=== PATIENT | male | born 1955 | race Two or more races ===

== ENCOUNTER 2017-09-12 13:09 | Inpatient (IN) | payer OTHER ==
[~2017-09-12] VITALS: Ht 170.2 cm; Wt 90.3 kg
[~2017-09-12 13:09] MED LIST: AMITRIPTYLINE H10 M3 PO; CARVEDILOL6.25 M1 PO; COU7.5 PO; DICLOFENAC SODI75 MG PO; METFORMIN HCL1000 MG PO; NEU300 PO; NITROFURANTOIN100 MG PO; NOR10T PO; ROBAXIN-750750 MG PO; ZESTRIL40 MG PO
[2017-09-12 13:20] VITALS: Ht 170.2 cm; Wt 90.3 kg
[2017-09-12 14:02] LABS: BASOPHIL % 0.5 % (0-2); RED CELL DISTRIBUTION WIDTH 13.8 % (11.5-14.5)
[2017-09-12 14:08] LABS: CALCIUM 9.6 mg/dL (8.5-10.1); CARBON DIOXIDE 25.7 mmol/L (21-32); CREATININE SERUM 1.7 mg/dL (0.7-1.3); POTASSIUM SERUM 3.9 mmol/L (3.5-5.1)
[2017-09-12 14:12] LABS: ALBUMIN 3.4 g/dL (3.4-5.0); BILIRUBIN TOTAL 0.65 mg/dL (0.20-1.00)
[2017-09-12 14:13] LABS: TOTAL PROTEIN, SERUM 8.3 g/dL (6.4-8.2)
[2017-09-12 14:17] LABS: PLATELET COUNT 436 x10^3mcL (130-400)
[2017-09-12] MEDS ORDERED: FLOMAX0.4 MG PO (15:40)
[2017-09-12] MEDS ORDERED: CARVEDILOL25 M1 PO (15:40)
[2017-09-12] MEDS ORDERED: HYDROCHLOROTHIA25 MG PO (15:41)
[2017-09-12] MEDS ORDERED: DICLOFENAC SODI75 M1 PO (15:41)
[2017-09-12] MEDS ORDERED: LIPITOR40 MG PO (15:41)
[2017-09-12] MEDS ORDERED: VIBERZI100 MG PO (15:41)
[2017-09-12] MEDS ORDERED: ULTRAM50 MG PO (15:41)
[2017-09-12] MEDS ORDERED: ACT30 PO (15:41)
[2017-09-12 17:23] LABS: MAGNESIUM 1.8 mg/dL (1.8-2.4); PHOSPHOROUS 5.3 mg/dL (2.5-4.9)
[2017-09-12 17:28] LABS: T3 TOTAL 0.76 ng/mL
[2017-09-12 17:36] LABS: FREE T4 1.24 ng/dL (0.76-1.46); FREE THYROXINE INDEX 3.1 ug/dL (1.4-4.5); T4(THYROXINE) 8.8 ug/dL (4.7-13.3)
[2017-09-12 17:44] VITALS: BP 100/64
[2017-09-13 01:03] LABS: microscopic required? NO
[2017-09-13 01:20] LABS: urine erythrocyte NEGATIVE (NEGATIVE)
[2017-09-13 01:45] LABS: AMPHETAMINE QUAL UR NONE DETECTED (NEG <=1000)
[2017-09-13 06:00] VITALS: BP 99/66
[2017-09-13 06:29] LABS: BASOPHIL % 0.7 % (0-2); PLATELET COUNT 389 x10^3mcL (130-400); RED CELL DISTRIBUTION WIDTH 13.8 % (11.5-14.5)
[2017-09-13 06:49] LABS: CALCIUM 9.2 mg/dL (8.5-10.1); CARBON DIOXIDE 26.1 mmol/L (21-32); CREATININE SERUM 1.3 mg/dL (0.7-1.3); MAGNESIUM 1.9 mg/dL (1.8-2.4); PHOSPHOROUS 4.9 mg/dL (2.5-4.9); POTASSIUM SERUM 3.9 mmol/L (3.5-5.1)
[2017-09-13 09:56] VITALS: BP 105/78
[2017-09-13 12:39] VITALS: BP 106/75
[2017-09-13 17:46] VITALS: BP 111/62
[2017-09-13 19:20] VITALS: BP 96/70
[2017-09-14 05:31] VITALS: BP 114/74
[2017-09-14 06:36] LABS: PLATELET COUNT 373 x10^3mcL (130-400); RED CELL DISTRIBUTION WIDTH 13.9 % (11.5-14.5)
[2017-09-14 07:01] LABS: CALCIUM 9.3 mg/dL (8.5-10.1); CARBON DIOXIDE 27.8 mmol/L (21-32); CHLORIDE SERUM 99 mmol/L (98-107); CREATININE SERUM 0.9 mg/dL (0.7-1.3); GFR1 > 60 mL/min; GLUCOSE SERUM 92 mg/dL (74-106); MAGNESIUM 1.5 mg/dL (1.8-2.4); PHOSPHOROUS 4.1 mg/dL (2.5-4.9); POTASSIUM SERUM 3.9 mmol/L (3.5-5.1); SODIUM SERUM 134 mmol/L (136-145)
[2017-09-14 09:47] VITALS: BP 119/80
[2017-09-14 11:48] VITALS: BP 119/80
[2017-09-14 13:03] VITALS: BP 105/69
== END 2017-09-14 13:31 | disposition home or self-care (01) | DRG 48 ==
LOC: ED 13:09 → DU 15:48
PROVIDERS: Emergency Medicine; Family Medicine
DX: G90.8 Other disorders of autonomic nervous system (principal); E11.22 Type 2 diabetes mellitus with diabetic chronic kidney disease; E87.8 Other disorders of electrolyte and fluid balance, not elsewhere classified; E87.1 Hypo-osmolality and hyponatremia; D64.9 Anemia, unspecified; I12.9 Hypertensive chronic kidney disease with stage 1 through stage 4 chronic kidney disease, or unspecified chronic kidney disease; S13.4XXA Sprain of ligaments of cervical spine, initial encounter; F41.9 Anxiety disorder, unspecified; N18.3 Chronic kidney disease, stage 3 (moderate); E83.39 Other disorders of phosphorus metabolism; F17.210 Nicotine dependence, cigarettes, uncomplicated; F12.90 Cannabis use, unspecified, uncomplicated; J44.9 Chronic obstructive pulmonary disease, unspecified; E02 Subclinical iodine-deficiency hypothyroidism; E66.3 Overweight; M19.90 Unspecified osteoarthritis, unspecified site; E78.00 Pure hypercholesterolemia, unspecified; X58.XXXA Exposure to other specified factors, initial encounter; Y93.89 Activity, other specified; Z86.73 Personal history of transient ischemic attack (TIA), and cerebral infarction without residual deficits; Y92.89 Other specified places as the place of occurrence of the external cause; Y99.8 Other external cause status; Z82.49 Family history of ischemic heart disease and other diseases of the circulatory system; Z68.31 Body mass index [BMI] 31.0-31.9, adult
CPT/HCPCS: 82962; 83880; 84439; G0480; J2800; J7030; J7040; Q0092

== ENCOUNTER 2017-11-19 12:41 | Emergency (ER) | payer OTHER ==
[~2017-11-19] VITALS: Ht 170.2 cm; Wt 99.3 kg
[~2017-11-19 12:41] MED LIST changes: +ACT30 PO; +CARVEDILOL25 M1 PO; +DICLOFENAC SODI75 M1 PO; +FLOMAX0.4 MG PO; +HYDROCHLOROTHIA25 MG PO; +LIPITOR40 MG PO; +ULTRAM50 MG PO; +VIBERZI100 MG PO
[2017-11-19 12:49] VITALS: Ht 170.2 cm; Wt 99.3 kg
[2017-11-19 14:47] VITALS: BP 125/74
== END 2017-11-19 14:47 | disposition home or self-care (01) ==
LOC: ED 12:41
PROC: 3E023NZ Introduction of Analgesics, Hypnotics, Sedatives into Muscle, Percutaneous Approach (ICD-10-PCS; principal; 2017-11-19)
DX: M54.5 Low back pain (principal); G89.29 Other chronic pain
CPT/HCPCS: J1885

== ENCOUNTER 2020-05-10 14:25 | Inpatient (IN) | payer OTHER ==
[~2020-05-10] VITALS: Ht 170.2 cm; Wt 101.6 kg
[2020-05-10 14:42] VITALS: Ht 170.2 cm; Wt 101.6 kg
[2020-05-10 17:09] LABS: BASOPHIL % 0.4 % (0.2-1.5); PLATELET COUNT 289 x10^3mcL (152-348)
[2020-05-10 17:13] LABS: CALCIUM 9.3 mg/dL (8.5-10.1); CARBON DIOXIDE 24.9 mmol/L (21-32); CHLORIDE SERUM 96 mmol/L (98-107); GFR1 > 60 mL/min; GLUCOSE SERUM 124 mg/dL (74-106); POTASSIUM SERUM 3.6 mmol/L (3.5-5.1); RED CELL DISTRIBUTION WIDTH 15.1 % (12.1-16.2); SODIUM SERUM 133 mmol/L (136-145)
[2020-05-10 17:14] LABS: rbc morphology (normal/abnorm) NORMAL (NORMAL)
[2020-05-10 17:18] LABS: ALBUMIN 3.9 g/dL (3.4-5.0); ALKALINE PHOSPHATASE 107 U/L (46-116); ALT/SGPT 41 U/L (16-63); AST/SGOT 31 U/L (15-37); BILIRUBIN TOTAL 0.8 mg/dL (0.20-1.00); MAGNESIUM 2.1 mg/dL (1.8-2.4); PHOSPHOROUS 1.9 mg/dL (2.5-4.9); TOTAL PROTEIN, SERUM 8.2 g/dL (6.4-8.2)
[2020-05-10] MEDS ORDERED: ASPIRIN CHILDRE81 MG PO (18:17)
[2020-05-11 00:33] VITALS: BP 130/96
[2020-05-11 06:15] VITALS: BP 121/92
[2020-05-11 06:32] LABS: BASOPHIL % 0.6 % (0.2-1.5); PLATELET COUNT 246 x10^3mcL (152-348)
[2020-05-11 07:17] LABS: RED CELL DISTRIBUTION WIDTH 14.9 % (12.1-16.2)
[2020-05-11 08:22] LABS: rbc morphology (normal/abnorm) NORMAL (NORMAL)
[2020-05-11 08:49] VITALS: BP 132/96
[2020-05-11 10:47] LABS: CALCIUM 9.2 mg/dL (8.5-10.1); CHLORIDE SERUM 98 mmol/L (98-107); CHOLESTEROL 137 mg/dL (<200); CHOLESTEROL/HDL RATIO 2.9; CREATININE SERUM 1.1 mg/dL (0.7-1.3); GFR1 > 60 mL/min; GLUCOSE SERUM 107 mg/dL (74-106); HDL CHOLESTEROL 47 mg/dL (40-60); POTASSIUM SERUM 4.2 mmol/L (3.5-5.1); SODIUM SERUM 137 mmol/L (136-145); TRIGLYCERIDES 67 mg/dL (<150)
[2020-05-11 12:19] VITALS: BP 115/82
[2020-05-11 17:27] VITALS: BP 133/94
[2020-05-11 21:05] VITALS: BP 135/78
[2020-05-12 05:39] VITALS: BP 118/71
[2020-05-12 06:23] LABS: CALCIUM 8.8 mg/dL (8.5-10.1); CARBON DIOXIDE 29.8 mmol/L (21-32); CHLORIDE SERUM 101 mmol/L (98-107); CREATININE SERUM 1.1 mg/dL (0.7-1.3); GFR1 > 60 mL/min; GLUCOSE SERUM 109 mg/dL (74-106); POTASSIUM SERUM 4.1 mmol/L (3.5-5.1); SODIUM SERUM 138 mmol/L (136-145)
[2020-05-12 06:30] LABS: BASOPHIL % 0.7 % (0.2-1.5); PLATELET COUNT 234 x10^3mcL (152-348)
[2020-05-12 06:40] LABS: RED CELL DISTRIBUTION WIDTH 14.7 % (12.1-16.2)
[2020-05-12 06:41] LABS: rbc morphology (normal/abnorm) NORMAL (NORMAL)
[2020-05-12 09:49] VITALS: BP 127/84
[2020-05-12 13:00] VITALS: BP 125/86
[2020-05-12 17:43] VITALS: BP 125/86
== END 2020-05-12 20:25 | disposition home or self-care (01) | DRG 253 ==
LOC: ED 14:25 → DU 18:19
PROVIDERS: Emergency Medicine; ADMIT Hospitalist; ATTEND Hospitalist
DX: K62.5 Hemorrhage of anus and rectum (principal); I21.A1 Myocardial infarction type 2; N17.9 Acute kidney failure, unspecified; I50.9 Heart failure, unspecified; I11.0 Hypertensive heart disease with heart failure; Z20.828 Contact with and (suspected) exposure to other viral communicable diseases; D64.9 Anemia, unspecified; K57.90 Diverticulosis of intestine, part unspecified, without perforation or abscess without bleeding; M19.90 Unspecified osteoarthritis, unspecified site; F10.20 Alcohol dependence, uncomplicated; Z86.73 Personal history of transient ischemic attack (TIA), and cerebral infarction without residual deficits; Z83.3 Family history of diabetes mellitus; Z79.899 Other long term (current) drug therapy
CPT/HCPCS: 82962; 90732; G0378; U0003